=== PATIENT | male | born 1945 | race Caucasian/White ===

== ENCOUNTER 2021-06-14 10:53 | Emergency (ER) | payer MEDICARE, OTHER, SELFPAY ==
[2021-06-14 12:42] VITALS: BP 113/56; PULSE 56; RESP 20; TEMP 37.2; O2SAT 96; BMI 30.5
--- NOTE | 2021-06-14 12:43 | XR_ITS ---
FINAL REPORT CLINICAL HISTORY: cough covid positive FINDINGS: Two views of the chest were obtained. The heart size and pulmonary vascularity are within normal limits. The mediastinum is normal. There are mild bibasilar opacities. There is no pneumothorax. The bony thorax is intact. IMPRESSION: Mild bibasilar opacities, atelectasis or pneumonia. Reviewed, Interpreted and Dictated by Romario Slaughter III, MD Transcribed by Herbert Sumner Authenticated by Romario Slaughter III, MD on 06/14/2021 01:27:45 PM [facility]
--- NOTE | 2021-06-14 14:05 | HMH.EDUTC ---
[facility] [place] Disposition Clinical Impression: COVID-19 Pneumonia Qualifiers: Pneumonia type: due to unspecified organism Laterality: bilateral Lung location: lower lobe of lung Qualified Code(s): J18.9 - Pneumonia, unspecified organism Disposition: Still a Patient Condition on Discharge: Fair Referrals: Provider,ReferralMD [Primary Care Provider] - Time of Disposition: 15:55 Medical Decision Making - Medical Records Medical records reviewed: No: I reviewed the patient's medical records. - Ravin Inquiry Pt receiving controlled substance: No Vital Signs: 06/14/21 12:42 Temperature 98.9 F Temperature Source Oral Pulse Rate [Left] 56 L Respiratory Rate 20 Blood Pressure [Right Arm] 113/56 L Blood Pressure Mean [Right Arm] 75 02 Sat by Pulse Oximetry 96 Orders (Tests/Meds): ORDERS Category Date Time Status CMP [Comprehensive Metabolic Panel] Stat Lab 06/14/21 15:00 Ordered Complete Blood Count Auto Diff Stat Lab 06/14/21 15:00 Ordered - Radiology Data #1 Image(s): Chest Image Reviewed: Yes I reviewed the patient's radiology image, Yes I have reviewed radiologist's interpretation Preliminary Findings: Abnormal FINAL REPORT CLINICAL HISTORY: cough covid positive FINDINGS: Two views of the chest were obtained. The heart size and pulmonary vascularity are within normal limits. The mediastinum is normal. There are mild bibasilar opacities. There is no pneumothorax. The bony thorax is intact. IMPRESSION: Mild bibasilar opacities, atelectasis or pneumonia. Reviewed, Interpreted and Dictated by Romairo Slaughter III, MD Transcribed by Herbert Sumner Authenticated by Romario Slaughter III, MD on 06/14/2021 01:27:45 PM [facility] Medical Decision Narrative: He was found lying in the floor of the [facility] room. He denies falling. He states that he felt so bad and the chair was uncomfortable so he just laid down in the floor. He is very weak and seems out of breath. He was transferred to the ER due to his weakness and shortness of breath. [facility] [place] HPI - General Stated complaint: covid positive, worsening symptoms Time Seen by Provider: 06/14/21 14:05 Mode of Arrival: Ambulatory Source of Information: Patient Limitations: No Limitations Description of Symptoms (Recalled from Triage Doc. by RN): pt is COVID POSITIVE as of 06/07. pt c/o loss of appetite and fever. HEENT Symptoms (Recalled from RN notes): No Resp Symptoms (Recalled from RN notes): No Skin Symptoms (Recalled from RN notes): No MS Symptoms (Recalled from RN notes): No Functional Status (Recalled from RN notes): loss of appetite - History of Present Illness Provider Complaint: He states that he has been sick for over the past 1 week. He has been having a cough, chest congestion, shortness of breath and extreme fatigue. [facility] [place] but he did not feel like going all the way there today. - Related Data Allergies Allergy/AdvReac Type Severity Reaction Status Date / Time No Known Allergies Allergy Verified 06/14/21 12:47 - Worker's Comp Is this a Worker's Comp case?: No [facility] History - Hepatitis A Screen Drug use history?: No High risk sexual behaviors?: No History of sexually transmitted infection?: No Currently employed?: No Childcare worker?: No Do you have indoor plumbing?: Yes Do you have electricity?: Yes Attestation statement:: This patient has been screened for Hepatitis A risk factors. I have reviewed the patient's past medical history: Yes ROS Obtained: Yes All systems reviewed & no additional complaints - Constitutional Constitutional: Reports as per HPI - Eyes Eyes: Denies eye discharge - ENT Ears, Nose, Mouth, and Throat: Reports as per HPI - Cardiovascular Cardiovascular: Denies chest pain - Respiratory Respiratory: Reports chest congestion, Reports cough, Reports dyspnea, Denies stridor, Reports wheezing - Gastrointestinal Gastrointestingal: Reports:
[2021-06-14 16:03] VITALS: BP 148/99; PULSE 76; RESP 16; O2SAT 98; BMI 30.5
--- NOTE | 2021-06-14 16:10 | HMH.EDGENADL ---
ED Disposition Clinical Impression: COVID-19 Pneumonia Qualifiers: Pneumonia type: due to unspecified organism Laterality: bilateral Lung location: lower lobe of lung Qualified Code(s): J18.9 - Pneumonia, unspecified organism Disposition: Home, Self-Care Condition on Discharge: Fair Instructions: DI for COVID-19 (Suspected or Confirmed ) Referrals: Provider,Referral, [Primary Care Provider] - - Critical Care Critical Care Time: No Attestation: On 06/14/21, the high probability of a clinically significant, sudden or life threatening deterioration of the following system(s) required my full and direct attention, intervention and personal management. The time I documented below is in addition to time spent performing reported procedures but includes the following listed in this critical care notation. Medical Decision Making - Medical Records Medical records reviewed: Yes: I reviewed the patient's medical records. - Ravin Inquiry Pt receiving controlled substance: No Vital Signs: 06/14/21 12:42 06/14/21 16:03 06/14/21 16:12 Temperature 98.9 F 98.5 F Temperature Source Oral Oral Pulse Rate 81 Pulse Rate [Left] 56 L 76 Respiratory Rate 20 16 18 Blood Pressure 141/76 H Blood Pressure [Right Arm] 113/56 L 148/99 H Blood Pressure Mean [Right Arm] 75 115 02 Sat by Pulse Oximetry 96 98 Oxygen Delivery Method Room Air Room Air - Lab Data Lab results reviewed: Yes: I reviewed the patient's lab results. Orders (Tests/Meds): ORDERS Category Date Time Status CMP [Comprehensive Metabolic Panel] Stat Lab 06/14/21 15:00 Ordered Complete Blood Count Auto Diff Stat Lab 06/14/21 15:00 Ordered Medical Decision Narrative: Patient 76-year-old male present emergency department with continued COVID symptoms. Given note patient, 12 visits today for 1 week, patient is not having significantly worsening or new acute symptoms, will order a chest x-ray to ensure that there is no secondary pneumonia. No secondary pneumonia was seen on the chest x-ray and patient will be discharged, discussed treatment at home. General Adult HPI - General Stated complaint: covid positive, worsening symptoms Time Seen by Provider: 06/14/21 14:05 Mode of Arrival: Ambulatory Source of Information: Patient Limitations: No Limitations Description of Symptoms (Recalled from ER Triage Doc. by RN): pt is COVID POSITIVE as of 1/12. pt c/o loss of appetite and fever. - History of Present Illness HPI narrative: Patient is a 76-year-old male presenting to emergency department with chief complaint of continued fevers, decreased p.o. intake with COVID. Patient states he has a positive for COVID 1 week ago he had continued symptoms. He does state that he is still able to eat and drink. Is denying nausea, vomiting. He sometimes feels short of air but is able to walk without getting significantly short of air. He does state that he has continued to have fevers up to 101, although the fevers do come down with Advil. He does not have any additional complaints at this time beyond lack of smell. When I asked why patient returned, patient states that his was concerned given his continued fevers. - Related Data Allergies Allergy/AdvReac Type Severity Reaction Status Date / Time No Known Allergies Allergy Verified 06/14/21 12:47 [facility] History - Hepatitis A Screen Drug use history?: No High risk sexual behaviors?: No History of sexually transmitted infection?: No Currently employed?: No Childcare worker?: No Do you have indoor plumbing?: Yes Do you have electricity?: Yes Attestation statement:: This patient has been screened for Hepatitis A risk factors. I have reviewed the patient's past medical history: Yes ROS Obtained: Yes Systems reviewed as appropriate & no additional complaints Physical Exam - General General appearance: alert, in no apparent distress - Head Head exam: atraumatic, normocephalic
[2021-06-14 16:12] VITALS: BP 141/76; PULSE 81; RESP 18; TEMP 36.9; O2SAT 97
== END 2021-06-14 16:13 | disposition home or self-care (01) ==
LOC: UTC 15:46 → ER 15:54
PROVIDERS: Emergency Provider Nurse Practitioner Family
DX: U07.1 COVID-19 (principal); J18.9 Pneumonia, unspecified organism
CPT/HCPCS: 71046; 99281